=== PATIENT | female | born 1940 | race Caucasian/White ===

== ENCOUNTER 2016-11-17 14:04 | Observation (INO) | payer MEDICARE, OTHER ==
[~2016-11-17] VITALS: Ht 157.5 cm; Wt 42.8 kg
--- NOTE | ~2016-11-17 | ESTC ---
Cardiac Perfusion Imaging Demographics Patient Name ALEE Terry Gender Female Patient Number [id number] Race Visit Number [id number] Ethnicity Corporate ID Room Number G6302 Accession Number [id number] Height Date of 1940 Weight Age 76 year(s) BSA Referring Physician Cuca Ramesh MD Interpreting Cuca Hugo Date of study 11/19/2016 Physician Supervising /MLP Cuca ZAPATA Technologist Nevin Vidales MD Ordering Physician Cuca Hugo Stress Jh Sandhu MD termite technician RVT Stress ECG Reading Cuca Hugo Nurse Kenney Hernandez Physician Procedure Procedure Type: Nuclear Stress Test:Pharmacological, Lexiscan, Cardiolite Stress Test Procedure Start time: 11/19/2016 10:31 Indications: CHF/SOB. Risk Factors The patient risk factors include:peripheral arterial disease, Current/Recent(w/in 1 year) tobacco use, treated hypercholesterolemia, treated hypertension and family history of premature CAD. Conclusions Summary Lexiscan cardiolite with no EKG changes of ischemia. Normal perfusion. Normal EF and WM. Stress Protocols Resting ECG RSR. Pre-stress physical exam: Un changed. Predicted HR: 143 bpm ECG Findings No ECG changes suggestive of ischemia. Arrhythmias PVCs. Symptoms Chest pain. Stress Interpretation Lexiscan cardiolite with normal hemodynamic response. Patient had chest pain. No EKG changes of ischemia. Occasional single PVCs. Imaging Results Applied corrections - Motion correction applied High risk findings Summed scores - Summed stress score: 11 - Summed rest score: 5 - Summed difference score: 6 Stress ejection Ejection fraction:80 % EDV :55 ml ESV :11 ml Stroke volume :44 ml LV mass :90 gr LV size:Normal Normal LV function Imaging Protocols Rest Stress Isotope:Tc99m Sestamibi IV Isotope: Tc99m Sestamibi IV Isotope dose:10.9 mCi Isotope dose:34.2 mCi Date:11/19/2016 08:47 Date:11/19/2016 11:04 Technique: SPECT Technique: Gated Supine SPECT Supine IV remains in place after procedure. Scan Time:45-60 minutes post injection Procedure Medications - Regadenoson (Lexiscan) 0.4 mg IV over 10-15 sec. I.V. . Medical History Admission Data Admission date: 11/17/2016 Admission Time: 16:26 Hospital Status: Inpatient. Signatures dtt: Oanh Thurman dtd: 11/19/16 1031 Physician Self Edit
--- NOTE | ~2016-11-17 | DS ---
PATIENT'S NAME: HALEY VICKERS [facility] AGE: 76 Y [address] ROOM: [place] [address] LOCATION: GPCU ADMIT DATE: 11/17/2016 Discharge Summary DISCHARGE DATE: 11/20/2016 FAMILY PHYSICIAN: Rosario Keen MD ATTENDING PHYSICIAN: Rosario Keen FINAL DIAGNOSES: 1. Acute community-acquired pneumonitis, type unspecified. 2. Iew-OY-lpaiclzaf myocardial infarction. 3. Hyperlipidemia. 4. Tobacco use. 5. Hypothyroidism, on replacement. 6. Hyperlipidemia. HOSPITAL COURSE: Haley was admitted to the hospital, a 76-year-old female, with cough and shortness of breath and an abnormal chest x-ray. She also had elevated troponin on admission, so obtained Cardiology consultation with Dr. Thurman. The patient underwent a CT scan of the chest, that showed no evidence of pulmonary embolus, see report. Her chest x- ray was consistent with a right lung acute pneumonitis. Her enzymes were elevated, and so Dr. Thurman performed on 11/19/2016 a Cardiolite stress test, results are pending. When I see the patient on 11/20/2016, she is stable. She has better air exchange in the right lung. She has been afebrile since admission, and she is tolerating diet and activity well. I await Dr. Thurman's recommendations in regard to her Cardiolite stress test and adjust her medicines as needed. I did switch her today to oral antibiotics, so she goes home. She will be dismissed later today on Ceftin and Zithromax per chart and goes out on the other medications that have been advised by Dr. Thurman. She will see me in the office in 1 week. If she has chest pain or shortness of breath or fever, she is to be seen back earlier, and she understands. She is to stop smoking. ROSARIO KEEN MD CRIMPER ASSEMBLER/stevel PATIENT'S NAME: HALEY VICKERS [facility] AGE: 76 Y [address] ROOM: [address] [address] LOCATION: GPCU ADMIT DATE: 11/17/2016 Discharge Summary DISCHARGE DATE: 11/20/2016 FAMILY PHYSICIAN: Rosario Keen MD ATTENDING PHYSICIAN: Rosario Keen /[id number] d: 11/20/162002 t: 11/29/16 1714, DISCHARGE SUMMARY
--- NOTE | ~2016-11-17 | ER ---
PATIENT'S NAME: GERTRUDE VICKERS [facility] AGE: 76 Y [address] ROOM: [place] [address] LOCATION: GPCU ADMIT DATE: 11/17/2016 ER/Outpatient Report DISCHARGE DATE: FAMILY PHYSICIAN: ROSARIO KEEN MD ATTENDING PHYSICIAN: ROSARIO KEEN Time of Arrival: 1404 hours. Time of Evaluation: 1410 hours. IDENTIFICATION: A 76-year-old female. CHIEF COMPLAINT: Shortness of breath. HISTORY OF PRESENT ILLNESS: The patient is a 76-year-old female, patient of Dr. Keen, who has been short of breath, so she went to see him at the clinic and was sent over here for further evaluation. No laboratory analysis or chest x-ray was done there. Her O2 saturation in clinic was 84%. On arrival here, she is complaining of shortness of breath. She has had a cough productive of yellow sputum and fatigue. No fever or chills, no nausea or vomiting, and no chest pain. PAST MEDICAL HISTORY: ALLERGIES: TO CODEINE. CURRENT MEDICATIONS: 1. Toprol-XL 50 mg daily. 2. Levothyroxine 75 mcg daily. 3. Pravastatin 40 mg daily. MEDICAL PROBLEMS: Hypertension, hyperlipidemia, and hypothyroidism. PRIOR SURGERIES: Right hip surgery in 2012 and carotid surgery with Dr. Francis in 2016. SOCIAL HISTORY: The patient lives in [place] with her daughter. Tobacco use, 1/2 pack per day for 50 years. Alcohol use, denies. Drug use, denies. FAMILY HISTORY: Father , heart problems and emphysema. Mother , diabetes and PATIENT'S NAME: GERTRUDE VICKERS [facility] AGE: 76 Y [address] ROOM: [address] [place] [id number] LOCATION: GPCU ADMIT DATE: 11/17/2016 ER/Outpatient Report DISCHARGE DATE: FAMILY PHYSICIAN: ROSARIO KEEN MD ATTENDING PHYSICIAN: ROSARIO KEEN stroke. All of her siblings out of 12 children total from a type of cancer. REVIEW OF SYSTEMS: All systems reviewed and negative other than what is noted in the HPI. PHYSICAL EXAMINATION: VITAL SIGNS: Weight 41.8 kg. Blood pressure 157/71, pulse 110, respirations 24, temperature 98, and saturations 88% on room air. GENERAL: A 76-year-old female, in mild respiratory distress. HEENT: Head: Normocephalic, atraumatic. Ears: TMs translucent, both ears. Eyes: Pupils equal and reactive to light and accommodation. Extraocular movements intact. Nose: Mucosa pink. No lesions or drainage. Mouth: No lesions. Pharynx benign. NECK: Supple. No lymphadenopathy. LUNGS: Coarse breath sounds throughout. HEART: Sinus tachycardia. No murmur, rub, or gallop. ABDOMEN: Bowel sounds present. Soft, nondistended. No hepatosplenomegaly. No palpable masses. Nontender. SKIN: [place], warm, and dry. No lesions or rashes noted. NEURO: The patient is alert and oriented x4. Cranial nerves 2 through 12 grossly intact. Motor strength 5/5 throughout. Sensation intact to light touch. No lower extremity edema. LABORATORY DATA: Lactate elevated at 2.1. Hemoglobin 12.4, hematocrit 39.1, platelets 616, white count 19.3 with 87% neutrophils. CPK 40, CK-MB 0.7, troponin I 0.115. ProBNP 3741. Procalcitonin elevated at 0.27. Sodium 136, potassium 3.7, chloride 95, CO2 of 29, BUN 11, creatinine 1.0, blood sugar 170, AST 41. EKG: Sinus rhythm at 91 beats per minute. No acute ST elevation or depression. Repeat troponin elevated at 0.127, CK-MB 0.6. Two-view chest x-ray: Right lower lobe infiltrate, pending Radiology over-read. IMPRESSION AND PLAN: 1. Pneumonia. Plan: Pneumonia pathway initiated in the emergency room. Blood cultures have been drawn. The patient was initiated on Rocephin and Zithromax IV, and will be admitted per Dr. Keen who did evaluate her here in the emergency room. 2. Congestive heart failure with elevated proBNP. 3. Hpd-NL-olvcmegsd myocardial infarction with elevated cardiac enzymes. Cardiology consultation with Dr. Thurman. 4. Tobacco abuse. 5. Hypertension. The patient remained in stable condition throughout her stay here in the PATIENT'S NAME: GERTRUDE VICKERS [facility] AGE: 76 Y [address] ROOM: [place] [address] [facility] ADMIT DATE: 11/17/2016 ER/Outpatient Report DISCHARGE DATE: FAMILY PHYSICIAN: ROSARIO KEEN MD ATTENDING PHYSICIAN: ROSARIO KEEN emergency room. MAGDA WASSERMAN MD CAR/modl /[id number] P d: 11/18/16 0128 t: 11/24/16 1926, OUTPATIENT REPORT
--- NOTE | ~2016-11-17 | ECHO ---
Transthoracic Echocardiography Report (TTE) Demographics Patient Name GERTRUDE VICKERS Date of Study 11/20/2016 Patient Number [id number] Visit Number [id number] Date of 1940 Room Number G6302 Gender Female Number Age 76 year(s) Referring Leonila Ramesh Barrel Raiser Helper Trudi Cruz, Physician RT,RVT,RDCS Physician Interpreting Cuca Hugo Pattern Cleaner Physician Supervising Ordering Leonila Ramesh MD, MD/MLP Physician Nurse Stress Medical Pathology Teacher Conclusions Contractility Score Summary Normal Left Ventricular contractility was noted. Summary Mild concentric left ventricular hypertrophy with normal internal dimension,EF and WM. Pleural effusion present. The aortic valve is mildly sclerotic. Mild TR. There is moderate pulmonary hypertension. The pulmonary pressure (RVSP) is 43 mmHg. Mild pulmonic valve regurgitation by color Doppler. Procedure Type of Study TTE procedure:2D Echocardiogram, M-Mode, Doppler , Color Doppler. Procedure Date Date: 11/20/2016 Start: 08:09 AM Study Location: Inpatient Portable Technical Quality: Adequate visualization Indications:Congestive heart failure. Additional Indications:pneumonia Appropriate Use Criteria: 9 Patient Status: Routine HR: 62 bpm BP: 170/75 mmHg M-Mode/2D Measurements LV Diastolic Dimension: 3.41 cm LV Systolic Dimension: 1.84 cm LV Septum Diastolic: 1.09 cm LV PW Diastolic: 1.15 cm AO Root Dimension: 2.2 cm Cardiac Output: 2.09 l/min AV Cusp Separation: 1.2 cm RV Diastolic Dimension: 2.08 cm LA volume: 30 ml MV EPSS: 0.5 cm LVOT: 1.9 cm LVOT VTI: 11.9 cm LV Stroke volume: 33.72 ml Doppler Measurements AV Peak Velocity: 1.41 m/s MV Peak E-Wave: 0.93 m/s AV Peak Gradient: 7.95 mmHg MV Peak A-Wave: 0.66 m/s AV Mean Gradient: 5 mmHg MV E/A Ratio: 1.41 LVOT Peak Velocity: 0.64 m/s MV P1/2t: 70 msec TR Gradient:20.25 mmHg PV Peak Velocity: 0.87 m/s Estimated RAP:10 mmHg PV Peak Gradient: 3.02 mmHg Estimated RVSP: 30 mmHg Estimated PASP: 30.25 mmHg E' Septal Velocity: 0.07 m/s A' Septal Velocity: 0.06 m/s MV E/E' Ratio: 13.9 Findings Left Ventricle Mild concentric left ventricular hypertrophy with normal internal dimension,EF and WM.. Right Ventricle Normal right ventricle structure and function. Left Atrium Normal left atrial size. Right Atrium Normal right atrial size. Mitral Valve Normal mitral valve structure and function. Aortic Valve The aortic valve is mildly sclerotic. Tricuspid Valve There is moderate pulmonary hypertension. The pulmonary pressure (RVSP) is 43 mmHg. Pulmonic Valve Mild pulmonic valve regurgitation by color Doppler. Pericardial Effusion No evidence of pericardial effusion. Miscellaneous Visualized portions of the aortic root and ascending aorta appear normal in size. Pleural Effusion Pleural effusion present. Contractility Score LV regional wall motion:(0-Non visualized 1-Normal 2-Hypokinesis 3-Akinesis 4-Dyskinesis 5-Aneurysm) Signature dtt: Oanh Thurman dtd: 11/20/16 0809 Physician Self Edit
--- NOTE | ~2016-11-17 | CON ---
PATIENT'S NAME: GERTRUDE JENKINS [facility] AGE: 76 Y [address] ROOM: [place] [address] LOCATION: GPCU ADMIT DATE: 11/17/2016 Consultation DISCHARGE DATE: FAMILY PHYSICIAN: ROSARIO KEEN MD ATTENDING PHYSICIAN: ROSARIO KEEN DATE OF CONSULTATION: 11/17/[address] Keen: Thank you for asking me to see Mrs. Jenkins who is a 76-year-old female patient, hospitalized with cough, elevated white count, and abnormal chest x-ray consistent with pneumonia. Her initial evaluation also revealed nonspecific abnormalities in her EKG and elevated troponin consistent with a non ST- segment elevation PR. I am asked to see her in consultation for that. The patient notes that she has not had any chest pains. About a week ago, she had a funny feeling all over her body that lasted for a second or so. She has been short of breath for the past week and has been in functional class III. There is no paroxysmal nocturnal dyspnea or orthopnea. She denies palpitations, lightheadedness, dizziness, syncope, presyncope, or ankle swelling. The patient has history of hypertension, elevated lipids, and ongoing tobaccoism. She denies diabetes. She has significant family history of premature coronary artery disease in her dad who had an PR in his 50s. She denies PR or angina or nitroglycerin use. There is no history of rheumatic fever, heart murmur, heart failure, dilated or enlarged heart, or any diagnosed cardiac arrhythmias. MEDICATIONS: 1. Pravastatin 40 mg at bedtime. 2. Metoprolol 50 mg once a day. 3. Cholecalciferol 5000 units a day. 4. Folic acid 1 mg a day. 5. Levothyroxine 75 mcg a day. 6. Ibuprofen 200 mg 2 every 6 hours as needed. 7. Cough drops. 8. Artificial tears. ALLERGIES: CODEINE WHICH CAUSES NAUSEA. PATIENT'S NAME: GERTRUDE JENKINS [facility] AGE: 76 Y [address] ROOM: [address] [place] [id number] LOCATION: GPCU ADMIT DATE: 11/17/2016 Consultation DISCHARGE DATE: FAMILY PHYSICIAN: ROSARIO KEEN MD ATTENDING PHYSICIAN: ROSARIO KEEN PAST MEDICAL HISTORY: 1. Left carotid endarterectomy in July of 2016. She had no TIA or CVA prior to that. 2. Hypothyroidism. 3. Appendectomy. 4. Cholecystectomy. 5. Hysterectomy. 6. Right hip surgery. 7. Right leg surgery after a fracture. SOCIAL HISTORY: The patient is retired from [email or web address]. She lives with her family at home. There is no history of alcohol abuse. Her appetite has been poor lately. Her weight has been somewhat down. Sleep is fair. She has no sleep apnea that she knows of. FAMILY HISTORY: Positive for premature coronary artery disease in her dad in his 50s. REVIEW OF SYSTEMS: A 12-point review of systems revealed the following positives: 1. Migraine headaches. 2. Sinus problems. 3. Corrective lenses. 4. Cataracts removed. 5. DJD. PHYSICAL EXAMINATION: VITAL SIGNS: On examination, her blood pressure was 180/80, heart rate is in the 70s to 90s and regular, respirations are 18, and afebrile. HEENT: Normal. NECK: Supple with no JVD, thyromegaly, lymphadenopathy, or carotid bruit. CARDIAC: PMI is not well located. First and second heart sounds are regular. There are no added sounds or murmurs. CHEST: Clear to auscultation. ABDOMEN: Soft and nontender. Bowel sounds are normally present. EXTREMITIES: No edema. CENTRAL NERVOUS SYSTEM: Overall appears to be intact. ASSESSMENT: A 76-year-old female patient with hypertension, type 2 diabetes, elevated cholesterol, family history of premature coronary artery disease, who had a left carotid endarterectomy done in July. She presents with what appears to be pneumonia. However, she also has some shortness of breath. Her troponins are elevated. PATIENT'S NAME: GERTRUDE JENKINS [facility] AGE: 76 Y [address] ROOM: [address] [address] LOCATION: GPCU ADMIT DATE: 11/17/2016 Consultation DISCHARGE DATE: FAMILY PHYSICIAN: ROSARIO KEEN MD ATTENDING PHYSICIAN: ROSARIO KEEN RECOMMEND: We will consider this jxo-KR-khbrjms elevation PR and follow her enzymes through and add a small dose of diuretics, and further management will depend on her initial evaluation. We will also check her echo which has already been ordered. She will probably benefit from a stress test once the pneumonia is little better, which probably I will at least wait for 1 or 2 days before ordering. Again, I appreciate this opportunity to participate in the care of Mrs. Jenkins. MD ART WATTS/yarelis /[id number] d: 11/18/16 0205 t: 11/28/16 1214, CONSULTATION REPORT
[~2016-11-17 14:04] MED LIST: FOLIC ACID0.8 MG PO; NORCO 5-325 TA1 EACH PO; PLAVIX75 MG PO; PRAVACHOL40 MG PO; PRINIVIL OR ZES10 MG PO; TOPROL XL 5050 MG PO; VITAMIN D35000 UNI1 PO
[2016-11-17 14:58] LABS: BASOPHIL # 0.1 K/uL (0.0-0.2); BASOPHIL % 0.3 %; EOSINOPHIL # 0.1 K/uL (0.0-0.5); EOSINOPHIL % 0.3 %; HEMATOCRIT 39.1 % (33.0-46.0); HEMOGLOBIN 12.4 g/dL (10.0-15.0); IMMATURE GRANULOCYTE # 0.1 K/uL (0.0-0.3); IMMATURE GRANULOCYTE % 0.6 %; LYMPHOCYTE # 1.4 K/uL (0.8-4.0); LYMPHOCYTE % 7.4 %; MCHC 31.7 gm/dL (32.0-36.5); MCV 94.4 fl (83.0-98.0); MONOCYTE # 0.8 K/uL (0.0-1.0); MPV 9.3 fl (9.4-12.4); NEUTROPHIL # (ANC) 16.9 K/uL (1.8-7.8); NEUTROPHIL % 87.4 %; NRBC % 0 /100WBC (0-0.00); PLATELET COUNT 616 K/uL (150-450); RBC 4.14 M/uL (3.50-5.50); RDW-CV 12.8 % (11.9-14.6); WBC 19.3 K/uL (4.0-11.0)
[2016-11-17 15:53] LABS: ALBUMIN 2.4 gm/dL (3.5-5.0); CALCIUM 8.9 mg/dL (8.5-10.5); TOTAL BILIRUBIN 0.2 mg/dL (0.0-1.5); TOTAL PROTEIN 7.6 g/dL (6.0-8.4)
[2016-11-17 15:54] LABS: ANION GAP 15.7 (10.0-19.0); POTASSIUM 3.7 mMol/L (3.7-5.1)
[2016-11-17] MEDS ORDERED: LEVOTHROID(SYN75 MCG PO (17:48)
[2016-11-17] MEDS ORDERED: ADVIL200 MG PO (17:49)
[2016-11-17] MEDS ORDERED: ARTIFICIAL TEAR15 ML OPHTH (17:49)
[2016-11-17] MEDS ORDERED: COUGH DROPS1 EAC1 PO (17:49)
--- NOTE | 2016-11-17 18:27 | NUR ---
Patient is 76 yo female admitted from the Emergency room after going to see Dr. Keen today. Patient states she started getting a cough on Sunday and it has just progressively gotten worse. denies fever or chills, but daughter states she gets hot and then cold. pt states she is usually always cold. patient has saline lock in left forearm without erythema or edema noted at site. Patient lives in [place] with her daughter and grandchildren. patient is very alert, appears older than stated age however. Patient states she has gone from about 105# a year ago to 89# today. states she hasn't eaten well for the past week or so. patient states she has smoked 1/2 ppd for 56 years. states she quit last week. Education is given as documented. patient and daughter deny questions at this time. pneumatics are on bilat calves. yellow socks are on. advanced directive booklet was given with directions for use per patient and dtr requests. pt states she wants to be a DNR. call light is within reach. denies needs at this time. warm blanket given to patient. Report is given to JUAN Pritchard.
[2016-11-17 21:32] LABS: INR - (THERAPEUTIC) 1.02 (0.92-1.07); PROTIME 10.7 SECONDS (9.8-11.4)
--- NOTE | 2016-11-18 07:06 | NUR ---
Significant Event: A/O, SBP 120-160s, HR 70-90s, 2L O2, afebrile, no c/o pain, non productive cough, Phenergan given x1, Heparin gtt infusing at 700units/hr to L)wrist, SBA, good UOP Follow up: echo this am
--- NOTE | 2016-11-18 18:43 | NUR ---
Significant Event: A/O X3. UP WITH SBA. DENIES PAIN. C/O COUGH, PHENERGAN 10 ML GIVEN X2. O2 @ 2L NC, LUNG SOUNDS VARY. IV TO LEFT FA WITH HEPARIN @ 800 UNITS/HR AND NS @ 41 ML/HR PER CT PROTOCOL. NEXT PTTHP @ 2245. PLEASANT AND COOPERATIVE WITH CARES. Follow up:
[2016-11-19 05:45] LABS: HEMATOCRIT 33.7 % (33.0-46.0); HEMOGLOBIN 10.8 g/dL (10.0-15.0)
--- NOTE | 2016-11-19 05:53 | NUR ---
Significant Event: A/O, VSS on 2L O2, unable to wean to keep sats >90%, productive cough, Heparin gtt at 900 units/hr, NPO since MN for stress Follow up: stress, home 1-2 days?
[2016-11-19 06:00] LABS: ANION GAP 11.7 (10.0-19.0); BLOOD UREA NITROGEN 5 mg/dL (6-24); CALCIUM 8.2 mg/dL (8.5-10.5); CHLORIDE 100 mMol/L (96-110); CO2 29 mMol/L (22-32); CREATININE 0.7 mg/dL (0.5-1.1); ESTIMATED GFR (MDRD EQUATION) > 60; POTASSIUM 3.7 mMol/L (3.7-5.1); SODIUM 137 mMol/L (135-145)
--- NOTE | 2016-11-19 16:08 | NUR ---
Significant Event:Cardiolyte stress test today. Denies pain. Daughter at bedside. A/O x3. O2 at 2L. Heparin at 900Units. next PTTHP at 0400. Had episode of second right finger turn a light blue color. diminished after rubbing it. Was warm, SaO2 good, had some tingling, VSS. IV L) fa. Harsh congested nonproductive cough. Follow up:Hematest stools x 3
--- NOTE | 2016-11-20 05:47 | NUR ---
Significant Event: A/O, VSS, 1L O2, loose/harsh cough, denies pain, R)index finger remains light blue in color, warm to touch, patient states slight numbness, SBA, Heparin gtt at 900 units/hr Follow up: home?
[2016-11-20] MEDS ORDERED: LIPITOR40 MG PO (10:17)
[2016-11-20] MEDS ORDERED: ASPIRIN325 MG PO (10:19)
[2016-11-20] MEDS ORDERED: ALDACTONE25 MG PO (10:20)
[2016-11-20] MEDS ORDERED: CEFTIN500 MG PO (10:27)
--- NOTE | 2016-11-20 12:51 | NUR ---
Introduced self and care management services to patient. Lives in [place] with daughter and grandkids. Denies concerns about going home, hoping she gets to go home today. On O2, does not wear O2 at home. Independent at home and says her family will help her if she needs anything. Will follow.
[2016-11-20] MEDS ORDERED: ASPIRIN (CHILDR81 MG PO (14:48)
[2016-11-20] MEDS ORDERED: TYLENOL325 MG PO (14:51)
--- NOTE | 2016-11-20 16:04 | NUR ---
Significant Event: pt on 1-2liters this am, but better as day went. 02 weaned room air, rt amb pt villagomez and 02 sat>90. IVF dcd. Pt voids well. No c/o. Pt daughter here with take pt home today. Follow up:
--- NOTE | 2016-11-20 18:40 | NUR ---
d-rupal quiros's pt discharge i-rt amb pt halls and observed pt 02 at rest >90% so no 02 needs. Teaching done on all meds with new ones explained and rx given, info sheets given to pt, r-pt and daughter state understanding p-ta took pt out to car no problems
== END 2016-11-20 17:50 | disposition disaster alternative care site (69) ==
LOC: GMED 14:04 → GPCU 16:26
PROVIDERS: Family Medicine; Internal Medicine Interventional Cardiology; ADMIT Family Medicine
DX: J18.9 Pneumonia, unspecified organism (principal); I21.4 Non-ST elevation (NSTEMI) myocardial infarction; E78.5 Hyperlipidemia, unspecified; E03.9 Hypothyroidism, unspecified; Z98.890 Other specified postprocedural states; I50.9 Heart failure, unspecified; Z72.0 Tobacco use; Z88.6 Allergy status to analgesic agent; Z79.899 Other long term (current) drug therapy
CPT/HCPCS: A9500; G0378; G8978; G8979; G8980; G8987; G8988; G8989; J0456; J0696; J1644; J2785; J7030; J7040; J7050